=== PATIENT | female | born 2000 | race Caucasian/White ===

== ENCOUNTER 2018-07-24 07:14 | Emergency (ER) | payer MEDICAID ==
[~2018-07-24] VITALS: Ht 157.5 cm; Wt 103.8 kg
[2018-07-24 07:16] VITALS: Ht 157.5 cm; Wt 103.8 kg
[2018-07-24] MEDS ORDERED: KETOROLAC 60 MG INJ IM STA (07:37)
[2018-07-24] MEDS ORDERED: NAPR-985 PO (07:41)
[2018-07-24] MEDS ORDERED: ONDANSETRON (ODT) 4 MG TAB ODT STA (07:58)
[2018-07-24] MEDS ORDERED: ONDA4TAB14 PO (11:33)
[2018-07-24] MEDS ORDERED: HYDR-4011 PO (11:33)
[2018-07-24 11:40] VITALS: BP 124/68; PULSE 74; RESP 18
--- NOTE | 2018-07-24 14:42 | ERD ---
ER Documentation Chief Complaint Chief Complaint shortness of breath HPI 17-year-old female presenting with shortness of breath and vomiting. Patient states that started 1 hour ago. She denies any chest pain. Denies fevers. Denies any OCP use, recent travel, leg swelling, recent surgery or hemoptysis. Has not taken medications for symptoms. Denies medical problems. NKDA. Surgical history denies. Social history smokes marijuana and cigarettes. ROS All systems reviewed and are negative except as per history of present illness. Medications Home Meds Active Scripts Ondansetron (Ondansetron Odt) 4 Mg Tab.rapdis, 4 MG PO Q6H PRN for NAUSEA AND/OR VOMITING, #10 TAB Prov:KOMAL TOMLINSON PA-C 07/24/18 Hydrocodone/Acetaminophen ([place]itt 5-325 Tablet) 1 Each Tablet, 1 TAB PO Q6H PRN for PAIN, #7 TAB Prov:KOMAL TOMLINSON PA-C 07/24/18 Allergies Allergies: Coded Allergies: No Known Allergy (Unverified , 07/24/18) PMhx/Soc Medical and Surgical Hx: pt denies Medical Hx, pt denies Surgical Hx Hx Alcohol Use: No Hx Substance Use: No Hx Tobacco Use: Yes Smoking Status: Current some day smoker FmHx Family History: No diabetes, No coronary disease, No other Physical Exam Vitals Vital Signs Date Temp Pulse Resp B/P (MAP) Pulse Ox O2 O2 Flow FiO2 Time Delivery Rate 07/24/18 98.0 74 18 124/68 99 11:40 (86) 07/24/18 97.7 72 18 109/60 99 Room Air 11:22 (76) 07/24/18 97.8 79 19 165/63 99 07:16 (97) Physical Exam GENERAL: The patient is well-appearing, well-nourished, in no acute distress HEENT: Atraumatic. Conjunctivae are pink. Pupils equal, round, and reactive to light. There is no scleral icterus. Tympanic membranes clear bilaterally. Oropharynx clear. NECK: C-spine is soft and supple. There is no meningismus. There is no cervical lymphadenopathy. CHEST: Clear to auscultation bilaterally. There are no rales, wheezes or rhonchi. Tender to palpation over midsternal wall. No crepitus. HEART: Regular rate and rhythm. No murmurs, clicks, rubs or gallops. ABDOMEN: Normal active bowel sounds. No distention. No organomegaly. Tender to palpation in the epigastric region. Result Diagram: 07/24/18 0842 07/24/18 0842 Results 24 hrs Laboratory Tests Test 07/24/18 08:42 07/24/18 11:28 White Blood Count 10.1 10^3/ul Red Blood Count 4.66 10^6/ul Hemoglobin 11.7 g/dl Hematocrit 36.4 % Mean Corpuscular Volume 78.1 fl Mean Corpuscular Hemoglobin 25.1 pg Mean Corpuscular Hemoglobin Concent 32.1 g/dl Red Cell Distribution Width 15.2 % Platelet Count 215 10^3/UL Mean Platelet Volume 11.1 fl Immature Granulocytes % 0.500 % Neutrophils % 74.7 % Lymphocytes % 19.0 % Monocytes % 4.5 % Eosinophils % 1.0 % Basophils % 0.3 % Nucleated Red Blood Cells % 0.0 /100WBC Immature Granulocytes # 0.050 10^3/ul Neutrophils # 7.5 10^3/ul Lymphocytes # 1.9 10^3/ul Monocytes # 0.5 10^3/ul Eosinophils # 0.1 10^3/ul Basophils # 0.0 10^3/ul Nucleated Red Blood Cells # 0.0 10^3/ul Urine Color CASSIUS Urine Clarity CLOUDY Urine pH 5.0 Urine Specific [place] 1.031 Urine Ketones TRACE mg/dL Urine Nitrite NEGATIVE mg/dL Urine Bilirubin NEGATIVE mg/dL Urine Urobilinogen 1+ mg/dL Urine Leukocyte Esterase NEGATIVE Claritza/ul Urine Microscopic RBC 1 /HPF Urine Microscopic WBC 5 /HPF Urine Squamous Epithelial Cells MODERATE /HPF Urine Mucus MANY /HPF Urine Hemoglobin NEGATIVE mg/dL Urine Glucose NEGATIVE mg/dL Urine Total Protein 1+ mg/dl Sodium Level 141 mmol/L Potassium Level 4.0 mmol/L Chloride Level 107 mmol/L Carbon Dioxide Level 23 mmol/L Anion Gap 11 Blood Urea Nitrogen 9 mg/dl Creatinine 0.63 mg/dl Est Glomerular Filtrat Rate mL/min > 60 mL/min Glucose Level 134 mg/dl Calcium Level 8.8 mg/dl Total Bilirubin 0.3 mg/dl Direct Bilirubin 0.00 mg/dl Indirect Bilirubin 0.3 mg/dl Aspartate Amino Transf (AST/SGOT) 30 IU/L Alanine Aminotransferase (ALT/SGPT) 17 IU/L Alkaline Phosphatase 94 IU/L Total Protein 7.4 g/dl Albumin 4.0 g/dl Globulin 3.40 g/dl Albumin/Globulin Ratio 1.17 Lipase 53 U/L Beta HCG, Quantitative < 2.4 mIU/ml Bedside Urine pH (LAB) 5.5 Bedside Urine Protein (LAB) 1+ Bedside Urine Glucose (UA) Negative Bedside Urine Ketones (LAB) Trace Bedside Urine Blood Negative Bedside Urine Nitrite (LAB) Negative Bedside Urine Leukocyte Esterase (L Negative Current Medications Medications Dose Sig/Liseth Start Time Status Last (Trade) Ordered Route PRN Stop Time Admin Dose Reason Admin Ketorolac 60 mg ONCE STAT 07/24/18 DC 07/24/18 Tromethamine IM 07:37 07/24/18 10:07 (Toradol) 07:39 Ondansetron 4 mg ONCE STAT 07/24/18 DC 07/24/18 HCl (Zofran ODT 07:58 07/24/18 08:03 Odt) 07:59 Procedures/MDM DIAGNOSTIC IMAGING REPORT Patient: MARLEEN DE JESUS : 2000 Age: 17 Sex: F MR #: [id number] DOS: 07/24/18 0924 Ordering MD: MICHAEL TOMLINSON PA-C Location: E Room/Bed: PROCEDURE: US Abdomen (right upper quadrant). CLINICAL INDICATION: Abdominal pain TECHNIQUE: Multiple real-time longitudinal and transverse images of the right upper quadrant of the abdomen were acquired utilizing a curved array transducer. Images were reviewed on a high-resolution PACS workstation. COMPARISON: None FINDINGS: The liver is normal in size and mildly increased echogenicity without focal mass or intrahepatic biliary dilatation. A 2.2 cm stone is present in the gallbladder. There is no pericholecystic fluid or gallbladder wall thickening. No intra or extrahepatic biliary dilatation is seen. The common bile duct measures 5.7 mm in maximal dimension. The pancreas is not well seen due to overlying bowel gas. No free fluid is identified. The right kidney measures 11.6 cm in length. There is normal echogenicity within the right kidney. There is no perinephric fluid collection. No hydronephrosis, mass, or calculus is seen. IMPRESSION: 1. Cholelithiasis without evidence of acute cholecystitis. 2. Increased hepatic echogenicity suggesting steatosis. 3. Pancreas not well seen. MDM: 17-year-old female presenting with epigastric pain. Patient has findings consistent with cholelithiasis with no signs of cholecystitis. I do not feel that patient requires further imaging. I have low suspicion for cardiac or pulmonary emergency. Patient may have underlying findings of occult costochondritis as well. Patient is discharged with strict ER precautions. All questions answered at discharge Departure Diagnosis: Primary Impression: Gallstones Condition: Stable Patient Instructions: Gallstones Referrals: [facility] YOU HAVE RECEIVED A MEDICAL SCREENING EXAM AND THE RESULTS INDICATE THAT YOU DO NOT HAVE A CONDITION THAT REQUIRES URGENT TREATMENT IN THE EMERGENCY DEPARTMENT. FURTHER EVALUATION AND TREATMENT OF YOUR CONDITION CAN WAIT UNTIL YOU ARE SEEN IN YOUR DOCTORS OFFICE WITHIN THE NEXT 1-2 DAYS. IT IS YOUR RESPONSIBILITY TO MAKE AN APPOINTMENT FOR FOLOW-UP CARE. IF YOU HAVE A PRIMARY DOCTOR --you should call your primary doctor and schedule an appointment IF YOU DO NOT HAVE A PRIMARY DOCTOR YOU CAN CALL OUR PHYSICIAN REFERRAL HOTLINE AT IF YOU CAN NOT AFFORD TO SEE A PHYSICIAN YOU CAN CHOSE FROM THE FOLLOWING [facility] [address] [facility]. [facility] [address] [facility] [facility] [address] [facility] [facility] [address] [facility]. [facility] [address] [facility]. [facility]. [address] Additional Instructions: FOLLOW UP WITH YOUR PRIMARY CARE PHYSICIAN TOMORROW.Return to this facility if you are not improving as expected. KOMAL TOMLINSON PA-C Jul 24, 2018 14:42
== END 2018-07-24 11:40 | disposition home or self-care (01) ==
LOC: FTE 07:14
DX: K80.20 Calculus of gallbladder without cholecystitis without obstruction (principal); F17.210 Nicotine dependence, cigarettes, uncomplicated
CPT/HCPCS: 36415; 76705; 80053; 81001; 83690; 84702; 85025; 96372; J1885; Z7502; Z7610; 81003